=== PATIENT | female | born 1950 | race African-American/Black ===

== ENCOUNTER 2018-12-26 17:55 | Emergency (ER) | payer OTHER, MEDICAID ==
[~2018-12-26] VITALS: Ht 160 cm; Wt 90.7 kg
[2018-12-26 20:28] VITALS: BP 127/85
[2018-12-26 23:01] LABS: Urine Bacteria MOD /hpf (None Seen); Urine Blood Negative /uL (Negative); Urine Hyaline Cast FEW /lpf (0 - 2); Urine Specific Gravity 1.017 (1.001-1.035); Urine WBC 281 /hpf (0 - 5); Urine WBC Clumps PRESENT /hpf (None Seen)
[2018-12-26] MEDS ORDERED: PHENAZOPYRIDINE HCL 100 MG TAB PO ONE (23:15)
[2018-12-26] MEDS ORDERED: KETOROLAC TROMETH 60MG/2ML VIAL IM ONE (23:15)
[2018-12-26] MEDS ORDERED: cefTRIAXone SOD 1,000 MG VL IM ONE (23:15)
== END 2018-12-26 23:22 | disposition home or self-care (01) ==
LOC: ER 18:01
DX: N39.0 Urinary tract infection, site not specified (principal); M54.5 Low back pain; H93.12 Tinnitus, left ear; I25.10 Atherosclerotic heart disease of native coronary artery without angina pectoris; I10 Essential (primary) hypertension; E78.00 Pure hypercholesterolemia, unspecified; Z90.710 Acquired absence of both cervix and uterus
CPT/HCPCS: 81001; 96372; 99283; J0696; J1885